=== PATIENT | male | born 1975 | race Caucasian/White ===

== ENCOUNTER 2023-04-10 11:02 | Outpatient (CLI) | payer OTHER ==
--- NOTE | 2023-04-10 11:44 | SLEEP CARE CONSULTATION ---
Information from patient questionnaire entered by Alicia James. I have reviewed and concur with the information entered by Alicia James. This document represents the service I personally performed and the decisions made by me, Lu Wood MD, [facility]. History of Present Illness Service Date and Time: 04/10/2023 1102 Reason for Visit: New patient Chief Complaint: reports: Other ([facility]ARE) Date of Onset: 6MONTHS Usual bedtime: 10PM Time it takes to fall asleep: 10MIN Snores at night: Yes Observed to quit breathing while asleep: No Sleeps alone due to snoring: No Number of times waking at night: 1 Reasons for waking at night: reports: Other (UNKNOWN) Toss, Turn, or Twitch while sleeping: No Recalls having dreams: Yes Usually gets out of bed at: 530AM Feels refreshed in the morning: Yes Morning headache: No Sleepy or fatigued during the day: Yes Ever fallen asleep while driving: No Dreams during day naps: No Prior sleep studies: Yes Year and Where: [facility] Additional HPI information: I had the pleasure of seeing Mr. Parekh today regarding obstructive sleep apnea- hypopnea. As you know, he is a 47-year-old gentleman who was diagnosed with the sleep-disordered breathing at [facility] in [place] on 12/06/2018. The AHI was 7.2 and jacob oxygen saturation of 87%. He was prescribed a CPAP device set at 9 15 cmH2O. His original machine is Volex Respironics DreamStation 1. He quit using it when it was recalled and bought himself a ResMed AirSense 10. He uses it every night and all night. The compliance data show usage in 180 out of the past 180 nights, averaging 7.5 hours a night. The residual AHI is 0.2; and average air leak is 0.1 L/minute. The 90th percentile pressure is 11.1 cmH2 O. He wears Respironics nasal pillows. He gets his supplies from [employer]. He finds the treatment very beneficial. 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 Patient is and lives in . Have you smoked in the past 12 months: No Alcohol use: Yes Alcohol amount and frequency: SOCIALLY Caffeine use: Yes Caffeine amount and frequency: 3 CUPS COFFEE Family History Family history of sleep disordered breathing: No Allergies and Home Medications Known drug allergies: No Drug allergies reviewed: Yes Home medication list reviewed: Yes Review of Systems Weight gain over past 5 years: 20 Cardiovascular: reports: high blood pressure Respiratory: denies: shortness of breath, wheeze, sputum production, chronic cough, other Gastrointestinal: denies: heartburn, difficulty swallowing, nausea, vomitting, diarrhea, abdominal pain, other Urinary: denies: incontinence, frequency, urgency, impotence, other Neurological: denies: headaches, seizure, head trauma, disorientation, speech dysfunction, gait or balance problems, fainting or unconsciousness, other Psychiatric: denies: Attention Deficit Hyperactivity, anxiety, depression, mood disorder, claustrophobia, other Ear/Nose/Throat: denies: nasal congestion, sinus problems, nose bleeds, dry mouth/throat, hoarseness, injury to nose, tonsillectomy, wisdom teeth removed, other Endocrine: denies: thyroid disease, history of goiter, sluggishness, too hot or cold, excessive thirst, increased appetite, increased urination, unexplained weakness, other Musculoskeletal: denies: joint pain, neck pain, back pain, joint swelling, muscle pain or cramping, mobility problems, other Immunologic: denies: sneezing, rash, itching, allergies to food or environment, other Physical Exam Vital signs obtained and entered by: ALICIA Terrazas MA Blood Pressure: 132/80 (LEFT ARM) Cuff size: long Heart Rate: 84 O2 Saturation: 97 Height: 5 ft 8 in Weight: 252 lb Body Mass Index: 38.2 BMI Classification: Obese Neck circumference: 18.75 Mood/affect: Normal HEENT: No craniofacial malformation Nostrils: patent to airflow Turbinates: normal Septum: midline Mouth and throat: narrow oropharynx Soft palate: long Uvula visualization: 25% Mallampati Class III Tongue: normal in size Tonsils: small Chin and jaw: Micrognathia Neck: normal w/o lymphadenopathy or thyromegaly Heart: regular rate and rhythm Lungs: clear bilaterally Extremities: no edema or clubbing Neurologic: intact Impression and Plan IMPRESSION: 1. Obstructive Sleep Apnea-Hypopnea Syndrome, mild, as previously diagnosed. The patient is doing very well on the positive airway pressure therapy. He has excellent compliance. The current pressure setting appears effective and comfortable. No adjustment is necessary today. Plan: 1. Prescription made for supplies through [employer]. 2. Try to lose weight. 3. Return for follow up in a year or earlier if there is any problem. He will be eligible for a new machine then. Continue with device pressure at (cmH2O): 9 - 15 Prescriptions: Device supplies Follow up with Sleep Care in: 1 year Visit Type: In Office Time Spent with Patient (minutes): 15 Provider Statement: I spent 100% of the Face to Face Visit with the patient with greater than 50% spent counseling the patient and coordination of care.
[2023-04-10 11:49] VITALS: BP 132/80
== END 2023-04-10 11:03 | disposition home or self-care (01) ==
LOC: SC 11:02
PROVIDERS: ATTEND Internal Medicine Pulmonary Disease
DX: G47.33 Obstructive sleep apnea (adult) (pediatric) (principal); E66.9 Obesity, unspecified; Z68.38 Body mass index [BMI] 38.0-38.9, adult
CPT/HCPCS: 99202; 99212

== ENCOUNTER 2024-05-22 09:17 | Outpatient (CLI) | payer OTHER ==
--- NOTE | 2024-05-22 09:47 | Sleep Patient Instructions ---
Sleep Center Visit Summary - Patient Visit Information Reason for Visit: Annual Follow up - Patient Instructions Additional Instructions: You will continue with CPAP therapy with pressure set at 9-15 cmH2O. A supply prescription will be updated with your DME. I have added an order to update your PAP machine. Please call the office to schedule a compliance follow up once you get your new device. I have also done a prescription for the exciteOSA to be faxed to [facility]. We encourage you to continue to try to lose weight. Please follow up with the sleep care office one month after obtaining new device. - Clinic Information Contact: [facility] [address] [place] [address] [email or web address] T: [phone]
--- NOTE | 2024-05-22 09:55 | SLEEP CARE CONSULTATION ---
Information from patient questionnaire entered by Alicia James. I have reviewed and concur with the information entered by Alicia James. This document represents the service I personally performed and the decisions made by , Magda Valle ARNP. History of Present Illness Service Date and Time: 05/22/2024 09 Previous diagnosis: Mild, Obstructive Sleep Apnea-Hypopnea Syndrome AHI: 7.2 ( 12/06/2018) Reason for follow up: annual (LAST SEEN 03/2023) Equipment type: CPAP (RESMED Airsense 10, s/u 2018) Equipment obtained from: Other ([facility]; getting supplies) Mask style: Nasal pillows Backup mask available: No Last cushion change: 1 month Prior sleep studies: Yes Year and Where: [facility] additional information: RAISSA GRIJALVA was diagnosed to have mild, AHI 7.2, obstructive sleep apnea- hypopnea syndrome and returned today for CPAP therapy annual follow-up. Sleep Study - Results Prior sleep studies: Yes Year and Where: [facility] CPAP Compliance Data - Data Reviewed with Patient Average duration of nightly device use: 7 HRS 14 MINS Compliance rate %: 98 (05/23/23-05/21/24; 361/365 days used) Current pressure setting (cmH2O): 9-15 Average residual AHI: 0.2 Central apnea: 0 Obstructive apnea: 0 Hypopnea: 0.2 Average large leak: 2.2 L/min Subjective Missed days of use due to: reports: other (power outage) Patient concerns: reports: air blowing in eyes (minor), mask leak noise (minor). denies: aerophagia, mask discomfort, condensation in mask/hose, nasal congestion, dry mouth, nose, throat, epistaxis Observed to snore while using device: No Current pressure setting perceived as: comfortable On therapy, patient: reports: sleeping better, awakening more refreshed, being more awake and alert during the day, more rested overall. denies: drowsiness while driving Initial [place] Sleepiness Scale score: 6 (04/10/23) Current [place] Sleepiness Scale score: 8 (05/21/24) Allergies and Home Medications Known drug allergies: No Drug allergies reviewed: Yes Home medication list reviewed: Yes (no changes) Review of Systems Review of systems same as previous: Yes (no changes) Physical Exam Vital signs obtained and entered by: ALICIA Terrazas MA Blood Pressure: 128/83 (LEFT ARM) Cuff size: long Heart Rate: 67 O2 Saturation: 98 Height: 5 ft 8 in Weight: 250 lb 6.4 oz Weight change since last visit: 2 lb loss Body Mass Index: 38.0 BMI Classification: Obese Impression and Plan 1. Obstructive Sleep Apnea-Hypopnea Syndrome, mild, with good treatment compliance and good apnea control. On CPAP therapy, the patient has better sleep quality and is more rested overall. He says he last updated his CPAP in 2019. He would also like to transfer to the [place] for his supplies. The patients CPAP is over 5 years old and of reasonable use. Thus, the CPAP will be updated. A DWO prescription will be made. Compliance guidelines for new device and follow up discussed. Patient's apnea severity and rationale for treatment to reduce apnea, improve sleep quality and reduce cardiovascular and cerebrovascular events was reviewed. Patient asking for other options for his mild obstructive sleep apnea. I reviewed other treatment options including oral appliance therapy and exciteOSA. I explained that these are good alternative therapies and he was interested in trying the exciteOSA. This is a fairly new therapy and insurance coverage is not certain. He would like to explore this option and a prescription will be made and sent to [facility] who do have this device in stock. If he is able to get the device, then we will do a follow-up about 6 weeks after he is using it exclusively during the day for 20 minutes. He will put the CPAP therapy on hold during this time. If he is found to have good response to this therapy and he prefers it, then we will discontinue the CPAP at that time. 2. Obesity, unspecified. Currently patients BMI is 38. Obesity increases the risk of apnea, CPAP pressure requirements and overall health risks especially cardiovascular and diabetes. Thus patient is advised to continue to try to lose weight. * Continue auto CPAP pressure at 9-15 cmH2O * Transfer DME to [place] * Update machine * Update supply prescription. * exciteOSA prescription * Notify me if snoring with mask or feeling that the pressure is too much or too little * Attempt to lose weight * Call this office if any problems using CPAP * Return for follow up one month after obtaining new device, or sooner if concerns arise Counseling Topics: Spare mask, Weight loss health impact Prescriptions: Auto CPAP, Device supplies, Other (exciteOSA) Visit Type: In Office Time Spent with Patient (minutes): 24 Provider Statement: I spent 100% of the Face to Face Visit with the patient with greater than 50% spent counseling the patient and coordination of care.
[2024-05-22 10:08] VITALS: BP 128/83; O2SAT 98
== END 2024-05-22 09:18 | disposition home or self-care (01) ==
LOC: SC 09:17
PROVIDERS: ATTEND Nurse Practitioner Family
DX: G47.33 Obstructive sleep apnea (adult) (pediatric) (principal); E66.9 Obesity, unspecified; Z68.38 Body mass index [BMI] 38.0-38.9, adult
CPT/HCPCS: 99212; 99213